=== PATIENT | female | born 1990 | race Caucasian/White ===

== ENCOUNTER 2022-08-15 10:55 | Day surgery (SDC) | payer OTHER ==
[~2022-08-15] VITALS: Ht 162.6 cm; Wt 80.7 kg
[2022-08-15 12:14] LABS: PROTHROMBIN TIME 11.3 secs (10.8-13.4)
[2022-08-15 12:23] LABS: BASOPHILS # (AUTO) 0.2 K/uL (0.00-0.22); BASOPHILS % (AUTO) 0.9 % (0.0-2.0); EOSINOPHILS # (AUTO) 0.1 K/uL (0-0.4); EOSINOPHILS % (AUTO) 0.6 % (0.0-4.0); HEMATOCRIT 40.6 % (36-48); HEMOGLOBIN 13.9 g/dL (12.0-16.0); MEAN CORPUSCULAR HEMOGLOBIN 29 pg (27-31); MEAN CORPUSCULAR HGB CONC 34 g/dL (33-37); MEAN CORPUSCULAR VOLUME 83.6 fL (80-94); MONOCYTES % (AUTO) 4.6 % (1.7-9.3); NEUTROPHILS # (AUTO) 14.4 K/uL (1.8-7.7); NEUTROPHILS % (AUTO) 69.9 % (42.2-75.2); PLATELET COUNT (AUTO) 429 K/uL (140-450); RED BLOOD CELL COUNT(AUTO) 4.85 MIL/uL (4.20-5.40); RED CELL DISTRIBUTION WIDTH 13.8 % (11.6-13.7); WHITE BLOOD COUNT (AUTO) 20.6 K/uL (4.8-10.8)
[2022-08-15] MEDS ORDERED: LIDOCAINE 2% 1000 MG/50 ML VIAL INJ ONE (13:10)
[2022-08-15] MEDS ORDERED: fentaNYL citrate 0.05 MG/ML VIAL ONE (13:35)
[2022-08-15] MEDS ORDERED: fentaNYL citrate 0.05 MG/ML VIAL IVP ONE (14:00)
== END 2022-08-15 15:05 | disposition home or self-care (01) ==
LOC: MDS 10:55 → MMU 11:08 → EDSEX 15:00 → MDS 15:05
PROVIDERS: ATTEND Internal Medicine Gastroenterology
DX: R74.01 Elevation of levels of liver transaminase levels (principal); Z20.822 Contact with and (suspected) exposure to COVID-19; Z79.01 Long term (current) use of anticoagulants
CPT/HCPCS: 36415; 47000; 76942; 85025; 85610; 85730; 87426; 88307; 88313; J2001; J3010; Q0092